=== PATIENT | female | born 1980 | race Two or more races ===

== ENCOUNTER 2022-01-31 11:45 | Inpatient (IN) | payer OTHER ==
[~2022-01-31] VITALS: Ht 165.1 cm; Wt 78.5 kg
[2022-01-31] MEDS ORDERED: WELLBUTRIN XL300 MG PO (13:10)
[2022-01-31] MEDS ORDERED: GABAPE PO (13:10)
[2022-01-31] MEDS ORDERED: ZYRTEC10 M3 PO (13:11)
[2022-01-31] MEDS ORDERED: SINGULAIR10 MG PO (13:11)
[2022-01-31] MEDS ORDERED: CLONAZEPAM0.5 MG PO (13:11)
[2022-01-31] MEDS ORDERED: CYMBALTA PO (13:12)
[2022-01-31] MEDS ORDERED: WIXELA IH (13:13)
[2022-01-31] MEDS ORDERED: LEVALB IH (13:14)
[2022-02-14] MEDS ORDERED: PROAIR HFA8.5 GM (08:22)
[2022-02-14] MEDS ORDERED: FLONASE16 GM (08:22)
[2022-02-14] MEDS ORDERED: PREDNISONE10 M2 (08:23)
[2022-02-14] MEDS ORDERED: WIXELA 250-501 EACH (08:23)
[2022-02-14] MEDS ORDERED: LEVALBUTER0.63 MG/3 (08:23)
[2022-02-14] MEDS ORDERED: GABAPENTIN800 M1 PO (08:24)
[2022-02-14] MEDS ORDERED: CYMBALTA20 MG PO (08:24)
[2022-02-14] MEDS ORDERED: Tylenol #3 PO (08:47)
== END 2022-02-14 09:49 | disposition home or self-care (01) | DRG 743 ==
LOC: ADM 11:45 → EDSTATUS 02-06 11:45 → CIR.AMB 02-06 11:45 → O/R 02-13 09:00 → SURG 02-13 10:00 → OB/GYN 02-13 13:33
PROVIDERS: ADMIT Obstetrics & Gynecology; ATTEND Obstetrics & Gynecology
PROC: 0TJB8ZZ Inspection of Bladder, Via Natural or Artificial Opening Endoscopic (ICD-10-PCS; 2022-02-13)
PROC: 0UT9FZZ Resection of Uterus, Via Natural or Artificial Opening With Percutaneous Endoscopic Assistance (ICD-10-PCS; principal; 2022-02-13 10:00)
DX: D25.1 Intramural leiomyoma of uterus (principal); N81.11 Cystocele, midline; N72 Inflammatory disease of cervix uteri; D50.0 Iron deficiency anemia secondary to blood loss (chronic); Z20.822 Contact with and (suspected) exposure to COVID-19